=== PATIENT | male | born 1975 | race Two or more races ===

== ENCOUNTER → 2019-12-06 | Outpatient (CLI) | payer BC | END | disposition home or self-care (01) | LOC: RADPV 10:47 | PROVIDERS: ATTEND Internal Medicine Geriatric Medicine | DX: Z01.818 Encounter for other preprocedural examination (principal); M51.26 Other intervertebral disc displacement, lumbar region; M62.830 Muscle spasm of back | CPT/HCPCS: 71046; 71046-TC ==

== ENCOUNTER 2024-05-23 15:29 | Emergency (ER) | payer BC ==
[~2024-05-23] VITALS: Ht 170.2 cm; Wt 84.1 kg
[2024-05-23 15:39] VITALS: BP 162/95; PULSE 86; RESP 16; TEMP 97.8; O2SAT 97
[2024-05-23] MEDS: FLUORESCEIN SODIUM 1 MG STRIP OS ONE (16:57)
[2024-05-23] MEDS: PROPARACAINE HCL 0.5% 15 ML OPHTHALMIC SOLUTION OS ONE (16:57)
[2024-05-23] MEDS ORDERED: OFLO5DRO49 OS (17:54)
[2024-05-23] MEDS: OFLOXACIN 0.3% 5 ML OPHTHALMIC SOLUTION OS ONE (18:15)
== END 2024-05-23 18:14 | disposition home or self-care (01) ==
LOC: EMS 15:29
DX: T15.12XA Foreign body in conjunctival sac, left eye, initial encounter (principal); W44.8XXA Other foreign body entering into or through a natural orifice, initial encounter; Y93.89 Activity, other specified; Y92.89 Other specified places as the place of occurrence of the external cause; Y99.8 Other external cause status
CPT/HCPCS: 65205; 99284; J9035; Z7502; Z7610